=== PATIENT | male | born 1990 | race Two or more races ===

== ENCOUNTER 2017-02-09 10:33 | Emergency (ER) | payer BC, OTHER ==
[~2017-02-09] VITALS: Ht 160 cm; Wt 108.9 kg
--- NOTE | 2017-02-09 10:35 | NUR ---
ARRIVAL PT TO [facility]IA [facility]. NAD. COLOR PINK. PT ALERT AND COOP. ICE PACK ON LEFT KNEE. PT COVERED WITH WARM BLANKET. PLACED ON MONITOR AND TRIAGE DONE
--- NOTE | 2017-02-09 10:36 | ER.PDOC ---
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 Developed sob, chest pain, and bilateral arm tingling Timing/Duration: 1 hour Severity: moderate Activities at Onset: activity/exertion, emotional stress Prior Episodes/Possible Cause: no prior episodes Prior symptoms/Treatment: Similar symptoms previous Allergies: Coded Allergies: carbamazepine (Verified Allergy, Unknown, rash, 02/09/17) phenytoin (Verified Allergy, Unknown, rash, 02/09/17) Vital Signs First Vital Signs Date Time Temp Pulse Resp B/P Pulse Ox O2 Delivery O2 Flow Rate FiO2 02/09/17 10:38 97.9 86 20 99 02/09/17 10:45 124/88 Last Vital Signs Date Time Temp Pulse Resp B/P Pulse Ox O2 Delivery O2 Flow Rate FiO2 02/09/17 12:05 88 20 99 02/09/17 12:05 97.9 124/87 Past Medical History Medical History: no pertinent history Surgical History: no surgical history Family History Significant Family History: no pertinent family hx Social History Smoking: non-smoker Alcohol Use: none Drug Use: none Reviewed Nursing Reviewed: Vital Signs, Abn. Noted Nursing Assessment Review of Systems Constitutional: no symptoms reported EENTM: no symptoms reported Respiratory: see HPI shortness of breath Cardiovascular: see HPI chest pain Gastrointestinal: no symptoms reported Genitourinary: no symptoms reported Musculoskeletal: no symptoms reported Skin: no symptoms reported Psychiatric/Neurological: no symptoms reported Endocrine: no symptoms reported Hematologic/Lymphatic: no symptoms reported All Other Systems: Reviewed and Negative Physical Exam General Appearance: No Apparent Distress, WD/WN, Anxious HEENT: PERRL/EOMI, Normal ENT Inspection Neck: Non-Tender, Full Range of Motion, Supple Respiratory: chest non-tender, lungs clear, normal breath sounds, no respiratory distress Cardiovascular: Normal Peripheral Pulses, Regular Rate, Rhythm, No Edema Gastrointestinal: Normal Bowel Sounds, No Organomegaly Extremities: Normal Range of Motion, Other (tender at medial knee along medial border. 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 Skin: Normal Color, Warm/Dry Lymphatic: No Adenopathy Results/Orders Results/Orders Laboratory Tests Test 02/09/17 10:39 White Blood Count 4.710^3/uL (4.5-11.0) Red Blood Count 5.7310^6/uL (4.50-5.90) Hemoglobin 15.0g/dL (13.9-16.3) Hematocrit 44.9% (37.0-53.0) Mean Corpuscular Volume 78.4fL (78-100) Mean Corpuscular Hemoglobin 26.2pg (26-34) Mean Corpuscular Hemoglobin Concent 33.4g/dL (33-37) Red Cell Distribution Width 14.4% (11.5-14.5) Platelet Count 94409^3/uL (150-400) Mean Platelet Volume 9.3fL (7.8-11.0) Neutrophils (%) (Auto) 56.5% (41.0-85.0) Lymphocytes (%) (Auto) 30.2% (24.0-44.0) Monocytes (%) (Auto) 9.3% (5.0-12.0) Neutrophils # (Auto) 2.710^3/uL (1.8-7.7) Lymphocytes # (Auto) 1.410^3/uL (1.0-4.8) Monocytes # (Auto) 0.410^3/uL (0.3-0.8) Absolute Immature Granulocyte (auto 0.0110^3 u/L (0-2) Eosinophils % 3.2% (0.0-5.0) Basophils % 0.6% (0.0-0.2) Basophils # 0.010^3/uL (0.0-0.1) Eosinophil Count 0.210^3/uL (0.0-0.2) Sodium Level 137mmol/L (132-145) Potassium Level 3.5mmol/L (3.6-5.2) Chloride Level 102.0mmol/L (96-109) Carbon Dioxide Level 21.4mmol/L (20.0-32) Anion Gap 17.1 Blood Urea Nitrogen 13mg/dL (7-18) Creatinine 1.14mg/dL (0.59-1.40) Estimat Glomerular Filtration Rate 0 BUN/Creatinine Ratio 11.0 Glucose Level 107mg/dL (70-110) Calculated Osmolality 283.6 Calcium Level 9.0mg/dL (8.4-10.5) Total Bilirubin 0.6mg/dL (0.2-1.0) Aspartate Amino Transf (AST/SGOT) 20U/L (0-35) Alanine Aminotransferase (ALT/SGPT) 39U/L (12-78) Alkaline Phosphatase 98U/L (50-136) Troponin I < 0.02ng/mL (0.00-0.05) Total Protein 7.2g/dL (6.4-8.2) Albumin 3.7g/dL (3.4-5.0) Globulin 3.5 Percent Immature Gran (Cell Imm) 0.20% (0.00-0.50) Administered Medications Medications (Trade) Dose Ordered Sig/Yogesh Route PRN Reason Start Time Stop Time Status Last Admin Dose Admin Ketorolac Tromethamine (Toradol) 60 mg STAT STAT IM 02/09/17 10:57 02/09/17 10:58 DC 02/09/17 11:01 EKG/XRAY/CT/US EKG: NSR, no ST T wave changes XRAY: chest (NAD per radiology) Departure Time of Disposition: 09:38 Disposition: 01 HOME, SELF-CARE Impression: Primary Impression: Anxiety reaction Additional Impression: Contusion, knee Condition: Stable Patient Instructions: Contusion Additional Instructions: ice, ibuprofen for knee see pcp return if problems Problem Qualifiers Additional Impression: Contusion, knee Encounter type: initial encounter Laterality: right Qualified Code: S80.01XA - Contusion of right knee, initial encounter KRISTIN FERGUSON MD Feb 09, 2017 10:36
[2017-02-09 10:55] LABS: BASOPHIL % 0.6 % (0.0-0.2); EOSINOPHIL # 0.2 10^3/uL (0.0-0.2); EOSINOPHIL % 3.2 % (0.0-5.0); HEMATOCRIT 44.9 % (37.0-53.0); LYMPHOCYTES # 1.4 10^3/uL (1.0-4.8); LYMPHOCYTES % 30.2 % (24.0-44.0); MEAN CELL HGB 26.2 pg (26-34); MEAN CELL HGB CONCENTRATION 33.4 g/dL (33-37); MEAN CORP VOLUME 78.4 fL (78-100); MEAN PLATELET VOLUME 9.3 fL (7.8-11.0); MONOCYTES # 0.4 10^3/uL (0.3-0.8); MONOCYTES % 9.3 % (5.0-12.0); NEUTROPHIL # 2.7 10^3/uL (1.8-7.7); NEUTROPHILS % 56.5 % (41.0-85.0); RED CELL DISTRIBUTION WIDTH 14.4 % (11.5-14.5); WHITE BLOOD CELL 4.7 10^3/uL (4.5-11.0)
[2017-02-09] MEDS ORDERED: TORADOL IM STA (10:57)
[2017-02-09] MEDS ORDERED: TORADOL ONE (10:58)
--- NOTE | 2017-02-09 11:22 | DIREP ---
PROCEDURE:XRAY KNEE 2 VWS-LT COMPARISON:None. INDICATIONS:injury FINDINGS: BONES:Normal. JOINTS:Normal. SOFT TISSUES:Normal. OTHER:No additional findings. CONCLUSION:Normal examination of the left knee. Dictated by: Christian Sargent M.D. on 02/09/2017 at 11:19 AM
[2017-02-09 11:23] LABS: ALANINE AMINOTRANSFERASE 39 U/L (12-78); ALKALINE PHOSPHATASE 98 U/L (50-136); ASPARTATE AMINO TRANSFERASE 20 U/L (0-35); CARBON DIOXIDE 21.4 mmol/L (20.0-32); GLUCOSE 107 mg/dL (70-110)
--- NOTE | 2017-02-09 11:23 | DIREP ---
PROCEDURE:CHEST 1 VIEW COMPARISON:None. INDICATIONS:chest pain, sob FINDINGS: LUNGS/PLEURA:No significant pulmonary parenchymal abnormalities. No effusions. VASCULATURE:Normal. Unremarkable pulmonary vasculature. CARDIAC:Normal. No cardiac silhouette abnormality or cardiomegaly. MEDIASTINUM:Normal. No visible mass or adenopathy. BONES:Normal. No fracture or visible bony lesion. OTHER:Negative. CONCLUSION:Normal chest examination. Dictated by: Christian Sargent M.D. on 02/09/2017 at 11:22 AM
== END 2017-02-09 11:58 | disposition home or self-care (01) ==
LOC: EDBD 10:33 → ER 10:33
DX: R20.2 Paresthesia of skin (principal); F41.1 Generalized anxiety disorder; S80.02XA Contusion of left knee, initial encounter; Z88.8 Allergy status to other drugs, medicaments and biological substances; W17.89XA Other fall from one level to another, initial encounter; Y93.89 Activity, other specified; Y92.89 Other specified places as the place of occurrence of the external cause; Y99.8 Other external cause status
CPT/HCPCS: 36415; 71010; 73560; 80053; 84484; 85025; 93005; 96372; 99285; J1885